=== PATIENT | female | born 1950 | race Caucasian/White ===

== ENCOUNTER 2019-10-02 19:37 | Inpatient (IN) | payer OTHER ==
[2019-10-02] MEDS ORDERED: PIPERACILLIN/TAZOB 4.5 GM 4.5 GM in DEXTROSE 5%-WATER 100 ML IVPB ONE (20:00)
[2019-10-02] MEDS ORDERED: VANCOMYCIN 1,000 MG in DEXTROSE 5%-WATER - 250 ML IVPB ONE (20:00)
--- NOTE | 2019-10-02 20:01 | PDOC ---
History of Present Illness - General Stated Complaint: VOMITING BLOOD Time Seen by Provider: 10/02/19 19:56 - History of Present Illness Initial Comments: The pt is a 69F from [facility] w/ a history of C-diff (being treated currently), acute spinal cord infarction, history of GIB, s/p trach, paraplegiam, COPD, RLE DVT (Eliquis), DM, sacral ulcers who presents for evaluation of hypotension s/p coffee ground emesis witnessed today at 1300. The pt was noted to be hypotensive to the 70s/40s. The pt is unable to provide a detailed history. Pt endorses bloody vomit today x1, is unsure if she had blood in her stool. Denies pain. Per EMS, the NH only noted one episode of emesis today. 10/02/19 20:18 Past History - Past Medical History Allergies/Adverse Reactions: Allergies Allergy/AdvReac Type Severity Reaction Status Date / Time No Known Allergies Allergy Verified 10/02/19 21:27 Review of Systems - Review of Systems Able to Perform ROS?: No (2/2 medical condition) *Physical Exam - Physical Exam Comments: GENERAL: Awake, alert HEAD: No signs of trauma, normocephalic, atraumatic EYES: PERRLA, EOMI, sclera pale, conjunctiva clear ENT: Hearing grossly normal, nares patent, oropharynx clear without exudates NECK: Tracheostomy in place with small amount of dried blood around device LUNGS: No distress, on vent, coarse breathing sounds inferiorly b/l HEART: Regular rate and rhythm, normal S1 and S2, no murmurs appreciated ABDOMEN: Soft, protuberant, no grimace to palpation, normoactive bowel sounds EXTREMITIES: Edematous, cool, paraplegia NEUROLOGICAL: Cranial nerves II through XII grossly intact SKIN: Cool, diaphoretic, pale 10/02/19 20:36 10/02/19 20:47 Procedures - Central Line Central Line Lumen: triple Central Line Position: femoral (R) Complications: none Post Central Line Insertion: sutured, good blood return ED Treatment Course - LABORATORY CBC & Chemistry Diagram: 10/03/19 01:30 10/03/19 00:48 - RADIOLOGY Radiology Studies Ordered: Category Date Time Status CHEST X-RAY PORTABLE* [RAD] Stat Radiology 10/02/19 20:00 Ordered Radiograph Interpretation: THIS IS A PRELIMINARY REPORT FROM [facility] DATE OF SERVICE: 2019-10-03 00:25:04 EXAM: CT CHEST WITHOUT CONTRAST AND CT ABDOMEN WITHOUT CONTRAST AND CT PELVIS WITHOUT CONTRAST IMPRESSION: Moderate distention of the stomach and small bowel consistent with ileus or high -grade bowel obstruction transition zone distal small bowel loops. Abnormal wall thickening and gas in the wall of the small bowel suspicious for ischemic or infectious enteritis from gas forming microorganisms with extensive pneumatosis in the wall of the small bowel and mesenteric veins. 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 Moderate to severe arteriosclerosis of the aorta and aortic branches and pelvic vasculature. Large right pleural effusion. Moderate right lower lobe lung consolidation most likely due to pneumonia or aspiration pneumonia with obstruction of the right lower lobe bronchus from aspirated debris. Mild patchy right upper lobe and left lower lobe infiltrates consistent with pneumonia. Moderate distention of the esophagus with gastroesophageal reflux to the upper thoracic esophagus. Mediastinal and hilar nonspecific lymphadenopathy. Calcified coronary artery arteriosclerosis. Mild nonspecific wall thickening of the colon most likely due to mild infectious inflammatory or ischemic colitis. Moderate amount of free fluid throughout the abdomen and pelvis most likely due to infection. Mild nonspecific bladder wall thickening may be due to infectious cystitis. Uterus appears unremarkable. 10/03/19 02:55 Medical Decision Making - Critical Care Time Total Critical Care Time (minutes): 45 Critical Care Statement: The care of this patient involved high complexity decision making to prevent further life threatening deterioration of the patient 's condition and/or to evaluate & treat vital organ system(s) failure or risk of failure. - Medical Decision Making The pt is a 69F from [facility] w/ a history of C-diff, GIB, s/p trach who presents for evaluation of hypotension s/p coffee ground emesis witnessed today at 1300. ED Course Pt placed on monitor Respiratory notified s/p crash R fem CVC (triple lumen) Labs sent IVF 2u pRBC (uncrossed) Protonix 40mg IV once ICU consulted 10/02/19 20:20 CXR w/ RLL infiltrate No leukocytosis Lactate 9.9, s/p 2L NS and 2u pRBC Cr 4.4, BUN 172, pt being resuscitated Transaminitis Trop I 0.1 Hgb 9.3, Hgb reported as 8s from PR Pt w/o emesis in ED, stool w/o melena Pt persistently hypotensive s/p 2L IVF and 2u pRBC, Norepi initiated at 5mcg/min Pt singed out to ICU 10/02/19 21:57 Pt noted to be febrile, will give Ofirmev 1g IV once Pt signed out to [facility] Admitting Hyperkalemia noted, pt given Ca ECG w/ sinus tachycardia, HR 108; narrow QRS; QTc 431; no axis deviation; no YAIR AG likely 2/2 lactic acidosis 10/02/19 23:31 Discharge - Discharge Information Problems reviewed: Yes Clinical Impression/Diagnosis: Sepsis Qualifiers: Sepsis type: sepsis due to unspecified organism Sepsis acute organ dysfunction status: unspecified Qualified Code(s): A41.9 - Sepsis, unspecified organism Hypotension Qualifiers: Hypotension type: unspecified hypotension type Qualified Code(s): I95.9 - Hypotension, unspecified Renal failure Qualifiers: Renal failure chronicity: unspecified chronicity Qualified Code(s): N19 - Unspecified kidney failure Pneumonia Qualifiers: Pneumonia type: due to unspecified organism Laterality: unspecified laterality Lung location: unspecified part of lung Qualified Code(s): J18.9 - Pneumonia, unspecified organism Condition: Critical - Admission Yes - Follow up/Referral - Patient Discharge Instructions - Post Discharge Activity
[2019-10-02] MEDS ORDERED: SODIUM CHLORIDE 0.9% 500 ML INFUS.BAG IV ONE (20:02)
[2019-10-02] MEDS ORDERED: PANTOPRAZOLE SODIUM 40 MG VIAL IVPUSH ONE (20:17)
--- NOTE | 2019-10-02 20:17 | PDOC ---
Attending Attestation - Resident Resident Name: Sid Handy - ED Attending Attestation I have performed the following: I have examined & evaluated the patient, The case was reviewed & discussed with the resident, I agree w/resident's findings & plan, Exceptions are as noted - HPI HPI: 10/02/19 20:16 Ms Danielson is a 69 yo F who presents the emergency department from [facility] due to coffee-ground emesis and hypotension Pt unable to give history She was noted to have coffee ground emesis at 1pm She was sent to the ER now due to relative hypotension 10/02/19 20:34 - Physicial Exam PE: 10/02/19 20:17 Patient's eyes open, is awake, no spontaneous verbalization Pupils are equal and round, reactive to light bilaterally Tracheostomy in place, no bleeding Breath sounds are coarse bilaterally Protuberant abdomen, does not appear tender to palpation Multiple tattoos on the abdomen Lower extremities are edematous bilaterally, cool to touch Two sacral decubiti noted, stage III, no bone exposed, surrounding erythema 10/02/19 22:36 - Critical Care Time Total Critical Care Time: 120 Critical Care Statement: The care of this patient involved high complexity decision making to prevent further life threatening deterioration of the patient 's condition and/or to evaluate & treat vital organ system(s) failure or risk of failure. - Medical Decision Making 10/02/19 20:18 69-year-old female presenting to the emergency department hypotensive Unable to obtain peripheral access Unable to place IJ Femoral line placed due to hypotension, no access Differential diagnoses include Upper GI bleed, anemia, sepsis, dehydration secondary to excessive diarrhea/ poor po intake We will do: Labs Chest x-ray EKG IV fluids Protonix Reassess Chest x-ray: Right sided pleural effusion, no consolidation ? Underlying pneumonia 10/02/19 22:29 Laboratory Tests 10/02/19 10/02/19 10/02/19 20:00 20:00 20:00 WBC 8.2 Hgb 9.3 L Hct 28.7 L Plt Count 799 H INR 1.76 H VBG pH POC VBG pCO2 POC VBG pO2 VBG HCO3 Sodium 124 L Potassium 5.7 H Chloride 85 L Carbon Dioxide 17 L Anion Gap 21 H BUN 172.3 H* Creatinine 4.4 H Random Glucose 397 H Lactic Acid AST 129 H ALT 553 H Troponin I 0.10 H Urine Blood Urine Nitrite Ur Leukocyte Esterase Urine WBC (Auto) 10/02/19 10/02/19 10/02/19 20:00 20:00 20:29 WBC Hgb Hct Plt Count INR VBG pH 7.13 L* POC VBG pCO2 48.1 POC VBG pO2 < 49 H VBG HCO3 15.4 L Sodium Potassium Chloride Carbon Dioxide Anion Gap BUN Creatinine Random Glucose Lactic Acid 9.9 H* AST ALT Troponin I Urine Blood 3+ H Urine Nitrite Positive H Ur Leukocyte Esterase 3+ H Urine WBC (Auto) 2914.6 Clinical impression: UA - UTI ---> UROSEPSIS (Got Zosyn, Vanc, Flagyl) RENAL FAILURE (unsure baseline creatitine, Labs this morning Cr: 2.9) BUN ELEVATED - UGIB vs. RENAL FAILURE (BUN>150 on labs this morning) HYPERKALEMIA - IVF, Calcium ELEVATED TROP - Critical illness POSSIBLE UGIB - Protonix ordered CDIFF (being treated) CT Chest/Abd/Pelvis Ordered (eval for SBO, Toxic Megacolon, free air, bowel ischemia/mesenteric ischemia) Pt remains hypotensive Started on Vasopressors Pt is critically ill
[2019-10-02 20:25] LABS: BASO % 0.1 % (0-2.0); EOS % 0.3 % (0-4.5); HEMATOCRIT 28.7 % (32.4-45.2); HEMOGLOBIN 9.3 GM/dL (10.7-15.3); LYMPH % 14.7 % (8-40); MCH 29.3 pg (25.7-33.7); MCHC 32.3 g/dl (32.0-36.0); MEAN CELL VOLUME 90.9 fl (80-96); MEAN PLT VOLUME 8.1 fl (7.5-11.1); MONO % 2.4 % (3.8-10.2); NEUT % 82.5 % (42.8-82.8); PLATELET COUNT 799 K/MM3 (134-434); RBC 3.15 M/mm3 (3.60-5.2); RDW 15.8 % (11.6-15.6); VENOUS PC02 48.1 mmHg (38-52); WHITE BLOOD COUNT 8.2 K/mm3 (4.0-10.0)
[2019-10-02 20:27] LABS: VENOUS PO2 < 49 mmHg (28-48)
[2019-10-02 20:30] LABS: VENOUS PH 7.13 (7.31-7.41)
[2019-10-02 20:37] LABS: INR 1.76 (0.83-1.09); PROTHROMBIN TIME (PATIENT) 20.9 SEC (9.7-13.0)
[2019-10-02 20:40] LABS: ACTIVATED PTT 35.9 SECONDS (25.2-36.5)
[2019-10-02] MEDS ORDERED: PIPERACILLIN/TAZOB 4.5 GM 4.5 GM/100 ML BAG IVPB ONE (20:51)
[2019-10-02] MEDS ORDERED: PANTOPRAZOLE SODIUM 40 MG/100 ML BAG IVPB ONE (20:51)
[2019-10-02] MEDS ORDERED: VANCOMYCIN 1 GRAM (PRE-DOCKED) 1,000 MG/250 ML BAG IVPB ONE (20:52)
[2019-10-02] MEDS ORDERED: SODIUM CHLORIDE 1,000 ML IV STA (21:04)
[2019-10-02] MEDS ORDERED: NOREPINEPHRINE BITARTRATE 8,000 MCG in DEXTROSE 5%-WATER - 492 ML IV SCH (21:15)
[2019-10-02] MEDS ORDERED: NOREPINEPHRINE BITARTRATE 4 MG/4 ML ML IV ONE (21:18)
[2019-10-02 21:20] LABS: ALBUMIN 1.7 g/dl (3.4-5.0); BILIRUBIN,TOTAL 0.5 mg/dL (0.2-1); CALCIUM 8.4 mg/dL (8.5-10.1); CREATININE 4.4 mg/dL (0.55-1.3); POTASSIUM 5.7 mmol/L (3.5-5.1)
[2019-10-02 21:22] LABS: BLOOD UREA NITROGEN 172.3 mg/dL (7-18)
[2019-10-02 22:16] LABS: URINE APPEARANCE TURBID; URINE BILIRUBIN NEGATIVE (NEGATIVE); URINE COLOR YELLOW; URINE GLUCOSE (UA) NEGATIVE (NEGATIVE); URINE KETONE NEGATIVE (NEGATIVE)
[2019-10-02 22:17] LABS: PH,URINE 7.5 (5.0-8.0); URINE NITRITE POSITIVE (NEGATIVE); URINE PROTEIN 2+ (NEGATIVE); URINE UROBILINOGEN 0.2 mg/dL (0.2-1.0)
[2019-10-02 22:18] LABS: HYALINE CASTS 2918.85 /lpf (0-8); URINE BACTERIA 5042.9 /hpf (NEGATIVE); URINE CRYSTALS NONE SEEN /hpf; URINE LEUK ESTERASE 3+ (NEGATIVE); URINE WBC 2914.6 /hpf (0-5); YEAST FEW (NEGATIVE)
[2019-10-02] MEDS ORDERED: CALCIUM GLUCONATE 10% - 1,000 MG/10 ML VIAL IVPB ONE (22:36)
[2019-10-02] MEDS ORDERED: ACETAMINOPHEN INJECTION 100 ML IVPB ONE (23:20)
[2019-10-02] MEDS ORDERED: ACETAMINOPHEN 1000 MG/100 ML VIAL (NON FORMULARY) IVPB ONE (23:30)
[2019-10-02] MEDS ORDERED: CALCIUM GLUCONATE 10% - 1,000 MG/10 ML VIAL ONE (23:48)
--- NOTE | 2019-10-02 23:52 | CONSULT ---
Consultation: REQUESTING PROVIDER: CONSULT REQUEST: We have been asked to medically evaluate this patient for ICU admission. HISTORY OF PRESENT ILLNESS: 69 y/o/f with PMHx of T2DM, HTN, HLD, COPD, and schizoaffective disorder who was recently discharged from [facility] to [facility] who was sent to the ED for two episodes of coffee ground emesis and hypotension today. Patient was admitted to [facility] for spinal cord infarction and flaccid quadriplegia in July. She was discharged on 09/30. In the ED patient was persistently hypotensive despite receiving 2L NS and 2 units PRBC. Found to have elevated renal function, elevated lactic acid, multiple lyte abnormalities. Discharge summary obtained from [facility] and placed in chart. At time of discharge from [facility] on 09/30 patient was known to have a BUN/Cr of 71/0.7. CXR with right sided pneumonia and UA positive for UTI. Patient admitted to ICU for severe sepsis 2/2 PNA vs UTI. REVIEW OF SYSTEMS: unable to obtain as patient has a tracheostomy PHYSICAL EXAMINATION Vital Signs - 24 hr 10/02/19 10/02/19 10/02/19 19:40 19:50 20:10 Temperature 100.9 F H Pulse Rate 113 H 118 H Respiratory 27 H 25 H Rate Blood Pressure 62/49 L O2 Sat by Pulse 99 100 Oximetry (%) 10/02/19 21:32 Temperature Pulse Rate 118 H Respiratory Rate Blood Pressure 89/57 L O2 Sat by Pulse Oximetry (%) GENERAL: alert, tracks movement with eyes HEAD: Normal with no signs of trauma. EYES: PERRL, EOMI EARS, NOSE, THROAT: Dry mucous membranes. NECK: Normal range of motion, supple without lymphadenopathy, JVD, or masses. LUNGS: patient with tracheostomy tube. Coarse breath sounds bilaterally, L worse than R. no accessory muscle use. HEART: Regular rate and rhythm, normal S1 and S2 without murmur, rub or gallop. ABDOMEN: distended, soft, nontender EXTREMITIES: 2+ pulses, warm, well-perfused. No calf tenderness. No peripheral edema. PSYCHIATRIC: Cooperative. Good eye contact. SKIN: multiple ulcers noted over sacrum and buttocks. 2x3 ulcer over right lower buttocks, 3x5 ulcer over lower left buttocks, larger ulcer over sacrum. No exposed bone. Erythema surrounding the groin Laboratory Results - last 24 hr 10/02/19 10/02/19 10/02/19 20:00 20:00 20:00 WBC 8.2 RBC 3.15 L Hgb 9.3 L Hct 28.7 L MCV 90.9 MCH 29.3 MCHC 32.3 RDW 15.8 H Plt Count 799 H MPV 8.1 Absolute Neuts (auto) 6.8 Neutrophils % 82.5 Lymphocytes % 14.7 Monocytes % 2.4 L Eosinophils % 0.3 Basophils % 0.1 Nucleated RBC % 0 PT with INR 20.90 H INR 1.76 H PTT (Actin FS) 35.9 VBG pH POC VBG pCO2 POC VBG pO2 VBG HCO3 VBG O2 Sat (Sandra) VBG Base Excess Sodium 124 L Potassium 5.7 H Chloride 85 L Carbon Dioxide 17 L Anion Gap 21 H BUN 172.3 H* Creatinine 4.4 H Est GFR (CKD-EPI)AfAm 11.26 Est GFR (CKD-EPI)NonAf 9.71 POC Glucometer Random Glucose 397 H Lactic Acid Calcium 8.4 L Total Bilirubin 0.5 AST 129 H ALT 553 H Alkaline Phosphatase 66 Troponin I 0.10 H Total Protein 6.0 L Albumin 1.7 L Urine Color Urine Appearance Urine pH Ur Specific [place] Urine Protein Urine Glucose (UA) Urine Ketones Urine Blood Urine Nitrite Urine Bilirubin Urine Urobilinogen Ur Leukocyte Esterase Urine WBC (Auto) Urine RBC (Auto) Urine Casts (Auto) U Pathogenic Cast Auto U Epithel Cells (Auto) Urine Crystals (Auto) Urine Bacteria (Auto) Urine Yeast (Auto) Stool Occult Blood Blood Type Antibody Screen Crossmatch 10/02/19 10/02/19 10/02/19 20:00 20:00 20:00 WBC RBC Hgb Hct MCV MCH MCHC RDW Plt Count MPV Absolute Neuts (auto) Neutrophils % Lymphocytes % Monocytes % Eosinophils % Basophils % Nucleated RBC % PT with INR INR PTT (Actin FS) VBG pH 7.13 L* POC VBG pCO2 48.1 POC VBG pO2 < 49 H VBG HCO3 15.4 L VBG O2 Sat (Sandra) 44.4 L VBG Base Excess -14.0 L Sodium Potassium Chloride Carbon Dioxide Anion Gap BUN Creatinine Est GFR (CKD-EPI)AfAm Est GFR (CKD-EPI)NonAf POC Glucometer Random Glucose Lactic Acid 9.9 H* Calcium Total Bilirubin AST ALT Alkaline Phosphatase Troponin I Total Protein Albumin Urine Color Urine Appearance Urine pH Ur Specific [place] Urine Protein Urine Glucose (UA) Urine Ketones Urine Blood Urine Nitrite Urine Bilirubin Urine Urobilinogen Ur Leukocyte Esterase Urine WBC (Auto) Urine RBC (Auto) Urine Casts (Auto) U Pathogenic Cast Auto U Epithel Cells (Auto) Urine Crystals (Auto) Urine Bacteria (Auto) Urine Yeast (Auto) Stool Occult Blood Blood Type A POSITIVE Antibody Screen Negative Crossmatch See Detail 10/02/19 10/02/19 10/02/19 20:18 20:29 22:40 WBC RBC Hgb Hct MCV MCH MCHC RDW Plt Count MPV Absolute Neuts (auto) Neutrophils % Lymphocytes % Monocytes % Eosinophils % Basophils % Nucleated RBC % PT with INR INR PTT (Actin FS) VBG pH POC VBG pCO2 POC VBG pO2 VBG HCO3 VBG O2 Sat (Sandra) VBG Base Excess Sodium Potassium Chloride Carbon Dioxide Anion Gap BUN Creatinine Est GFR (CKD-EPI)AfAm Est GFR (CKD-EPI)NonAf POC Glucometer 385 Random Glucose Lactic Acid Calcium Total Bilirubin AST ALT Alkaline Phosphatase Troponin I Total Protein Albumin Urine Color Yellow Urine Appearance Turbid Urine pH 7.5 Ur Specific [place] 1.013 Urine Protein 2+ H Urine Glucose (UA) Negative Urine Ketones Negative Urine Blood 3+ H Urine Nitrite Positive H Urine Bilirubin Negative Urine Urobilinogen 0.2 Ur Leukocyte Esterase 3+ H Urine WBC (Auto) 2914.6 Urine RBC (Auto) 18.0 Urine Casts (Auto) 2918.85 U Pathogenic Cast Auto None seen U Epithel Cells (Auto) 166.0 Urine Crystals (Auto) None seen Urine Bacteria (Auto) 5042.9 Urine Yeast (Auto) Few Stool Occult Blood Positive Blood Type Antibody Screen Crossmatch Active Medications Generic Name Dose Route Start Last Admin Trade Name Freq PRN Reason Stop Dose Admin Norepinephrine Bitartrate 8, 500 mls @ 18.75 mls/hr 10/02/19 21:15 10/02/19 21:32 000 mcg/ Dextrose IV 5 mcg/min TITR UMBERTO 18.75 mls/hr Administration Protocol 5 MCG/MIN ASSESSMENT/PLAN: 69 y/o/f with PMHx of T2DM, HTN, HLD, COPD, and schizoaffective disorder who was recently discharged from [facility] on 09/30 to [facility] who was sent to the ED for two episodes of coffee ground emesis and hypotension today. Admitted to ICU for KO and severe sepsis 2/2 PNA and UTI. #Neuro - Hold ASA - Hx of spinal infarct with flaccid quadriplegia, was admitted to [facility] in July - Hold Eliquis due to risk of GI bleed #Cardio - Echocardiogram to evaluate cardiac function - EKG - Trend Trops - BP support with Pressors: Levophed and Vasopressin #Respiratory - On Tracheostomy tube with vent - CXR showing right sided PNA vs pleural effusion - repeat ABG - CTAP: Moderate right lower lobe lung consolidation most likely due to PNA vs aspiration PNA. #GI - sent to ED with complaints of coffee ground emesis at [facility] - Protonix 40mg IV BID - Octreotide drip started - repeat CBC and transfuse as needed - BUN elevated inappropriately in relation to Cr, increases concern for GI bleed - CTAP showing: Moderate distention of the stomach and small bowel consistent with ileus or high-grade bowel obstruction transition zone distal small bowel loops. Gas in the wall of the small bowel suspicious for ischemic or infectious enteritis. 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 - GI consulted - Surgery consulted, spoke with Dr. Bacon, recommended to see if [facility] is willing to accept patient as patient was recently discharged from and had a complicated and extended stay at [facility]. #Renal - KO like 2/2 dehydration - last known BUN/Cr at discharge at [facility] was 71/0.7. BUN/Cr on admission here 172.3/4.4 - 3L fluid bolus NS given in ED - continue to bolus here as needed, add maintenance fluids - Hyperkalemia, treat with Insulin, D50, calcium gluconate. Will hold Lokelma, Kayexalate - Sodium Bicarb given - Urine studies ordered - Nephrology consulted #Heme - Hx of DVT in RUE - U/S of RUE to r/o DVT - 2 units PRBCs given in ED - monitor H&H, transfuse as needed #ID - Severe sepsis 2/2 PNA and UTI - IVF bolus for volume support - ID consulted - Started on Zosyn - Vanc, Zosyn x1 given in ED. Will hold Vanc due to renal function #Endo - hx of Diabetes - BGMs - ISS - consider insulin drip for better glycemic control #Prophylaxis - holding chemical anticoagulation due to risk of GI bleed - SCDs #FEN - NPO until evaluated by GI #Disposition - accepted for ICU monitoring - Patient accepted for transfer to [facility] MICU. Consent for transfer obtained from hebert Cassandra Felton, over the phone. Nurse confirmed consent for transfer. Visit type - Emergency Visit Emergency Visit: Yes ED Registration Date: 10/02/19 Care time: The patient presented to the Emergency Department on the above date and was hospitalized for further evaluation of their emergent condition. - New Patient This patient is new to me today: Yes Date on this admission: 10/03/19 - Critical Care Critical Care patient: Yes Total Critical Care Time (in minutes): 36 Critical Care Statement: The care of this patient involved high complexity decision making to prevent further life threatening deterioration of the patient 's condition and/or to evaluate & treat vital organ system(s) failure or risk of failure. ATTENDING PHYSICIAN STATEMENT I saw and evaluated the patient. I reviewed the resident's note and discussed the case with the resident. I agree with the resident's findings and plan as documented. SUBJECTIVE: OBJECTIVE: ASSESSMENT AND PLAN:
[2019-10-03] MEDS ORDERED: SODIUM CHLORIDE 1,000 ML IV STA ×2 (00:03→02:01)
[2019-10-03] MEDS ORDERED: SODIUM CHLORIDE 1,000 ML IV SCH (01:00)
[2019-10-03] MEDS ORDERED: OCTREOTIDE ACETATE 50 MCG/1 ML - 1 ML VIAL IVPUSH ONE (01:07)
[2019-10-03] MEDS ORDERED: INSULIN REGULAR HUMAN 100 UNITS/ML *VIAL SQ ONE (01:13)
[2019-10-03] MEDS ORDERED: OCTREOTIDE ACETATE 200 MCG, OCTREOTIDE ACETATE 1,000 MCG in DEXTROSE 5%-WATER - 496 ML IVPB SCH (01:15)
[2019-10-03] MEDS ORDERED: SODIUM BICARBONATE 8.4% 50 MEQ/50 ML DISP.SYRIN IVPUSH ONE (01:28)
[2019-10-03 01:47] LABS: HEMATOCRIT 36.6 % (32.4-45.2); HEMOGLOBIN 11.9 GM/dL (10.7-15.3); MCH 29.3 pg (25.7-33.7); MCHC 32.5 g/dl (32.0-36.0); MEAN CELL VOLUME 90.2 fl (80-96); MEAN PLT VOLUME 8.1 fl (7.5-11.1); PLATELET COUNT 608 K/MM3 (134-434); RBC 4.06 M/mm3 (3.60-5.2); RDW 15.7 % (11.6-15.6); WHITE BLOOD COUNT 11.4 K/mm3 (4.0-10.0)
[2019-10-03] MEDS ORDERED: PIPERACILLIN/TAZOB 2.25 GM 2.25 GM in DEXTROSE 5%-WATER - 50 ML IVPB SCH ×2 (02:00→18:00)
--- NOTE | 2019-10-03 02:00 | HP ---
Admitting History and Physical - Primary Care Physician PCP: Dr. Sheth - Admission Chief Complaint: S/p vomiting blood History of Present Illness: 69 year old female from [facility] with history of history of C-diff (being treated currently), acute spinal cord infarction, history of GIB, s/p trach, paraplegic COPD, RLE DVT (Eliquis), DM, sacral ulcers who presents to [facility] ER for evaluation of hypotension s/p coffee ground emesis. Patient hypotensive BP in the 70s/40s. Patient unable to provide a detailed history. Per NH record patient was admitted to [facility] for spinal cord infarction and flaccid quadriplegia in July. She was discharged on 09/30. History Source: Medical Record, Transfer Record Limitations to Obtaining History: Clinical Condition - Past Medical History Cardiovascular: Yes: Deep Vein Thrombosis Pulmonary: Yes: COPD, Other (s/p trach) Gastrointestinal: Yes: GI Bleed Infectious Disease: Yes: C-Diff Musculoskeletal: Yes: Paraplegia, Other (acute spinal cord infarction) Endocrine: Yes: Diabetes Mellitus Dermatology: Yes: Other (sacral ulcer) - Past Surgical History Additional Past Surgical History: unable to retrieve due to patient conditions - Smoking History Smoking history: Unknown if ever smoked - Social History Usual Living Arrangement: Yes: Care Home ADL: Support Services History of Recent Travel: No Home Medications - Allergies Allergies/Adverse Reactions: Allergies Allergy/AdvReac Type Severity Reaction Status Date / Time No Known Allergies Allergy Verified 10/02/19 21:27 Family Medical History Family History: Unable to Obtain Review of Systems Unable to obtain ROS, reason: due to clinical condition Physical Examination Vital Signs: Vital Signs Temperature 100.9 F H 10/02/19 19:40 Pulse Rate 111 H 10/03/19 01:38 Respiratory Rate 24 H 10/03/19 00:05 Blood Pressure 86/50 L 10/03/19 01:38 O2 Sat by Pulse Oximetry (%) 100 10/02/19 20:10 Constitutional: Yes: Mild Distress, Obese Eyes: Yes: Conjunctiva Clear, EOM Intact HENT: Yes: Atraumatic, Normocephalic Neck: Yes: Other (+ trach in place) Cardiovascular: Yes: Tachycardia, S1, S2 Respiratory: Yes: Mechanically Ventilated, Rales, SOB on Exertion Gastrointestinal: Yes: Normal Bowel Sounds, Soft, Abdomen, Obese Musculoskeletal: Yes: WNL Extremities: Yes: WNL Edema: Yes Edema: RUE: 2+, LLE: 2+ Peripheral Pulses WNL: Yes Wound/Incision: Yes: Other (multiple ulcers noted over sacrum and buttocks. 2x3 ulcer over right lower buttocks, 3x5 ulcer over lower left buttocks, larger ulcer over sacrum.) Neurological: Yes: Alert, Confusion Labs: CBC, BMP 10/02/19 20:00 10/02/19 20:00 Imaging - Results Chest X-ray: Report Reviewed (Right side pleural effusion) Problem List - Problems (1) Sepsis associated hypotension Code(s): A41.9 - SEPSIS, UNSPECIFIED ORGANISM; I95.9 - HYPOTENSION, UNSPECIFIED (2) Sepsis due to pneumonia Code(s): J18.9 - PNEUMONIA, UNSPECIFIED ORGANISM; A41.9 - SEPSIS, UNSPECIFIED ORGANISM (3) Sepsis due to urinary tract infection Code(s): A41.9 - SEPSIS, UNSPECIFIED ORGANISM; N39.0 - URINARY TRACT INFECTION, SITE NOT SPECIFIED (4) Acute renal failure Code(s): N17.9 - ACUTE KIDNEY FAILURE, UNSPECIFIED (5) Hyperkalemia Code(s): E87.5 - HYPERKALEMIA (6) Upper GI bleed Code(s): K92.2 - GASTROINTESTINAL HEMORRHAGE, UNSPECIFIED (7) C. difficile diarrhea Code(s): A04.72 - ENTEROCOLITIS D/T CLOSTRIDIUM DIFFICILE, NOT SPCF RECUR (8) Hyponatremia Code(s): E87.1 - HYPO-OSMOLALITY AND HYPONATREMIA (9) Elevated troponin I level Code(s): R79.89 - OTHER SPECIFIED ABNORMAL FINDINGS OF BLOOD CHEMISTRY (10) Elevated liver enzymes Code(s): R74.8 - ABNORMAL LEVELS OF OTHER SERUM ENZYMES (11) Acute respiratory acidosis Code(s): E87.2 - ACIDOSIS (12) Tracheostomy dependence Code(s): Z93.0 - TRACHEOSTOMY STATUS Assessment/Plan 69 year old female from [facility] with history of history of C-diff (being treated currently), acute spinal cord infarction, history of GIB, s/p trach, paraplegic COPD, RLE DVT (Eliquis), DM, sacral ulcers who presents to [facility] ER for evaluation of hypotension s/p coffee ground emesis. Patient hypotensive BP in the 70s/40s. Patient unable to provide a detailed history. Patient with severe sepsis and hypotension, admitted to ICU for close/ continuous monitoring. # Spesis secondary to UTI Vs PNA -s/p R fem CVC (triple lumen) placed in ED -s/p zosyn and vancomycin x1 , continue with IV abx -follow up CHERRY culture -follow up ID -pending CT abd/pelvis& chest # Hypotensive 2/2 to sepsis -s/p 2L IVF, placed on Norepi initiated at 5mcg/min, titrate as tolerated - monitor BP closely, MAP above 50 # Acute on chronic respiratory failure # Trach dependence # Acute respiratory acidosis # Right sided pleural effusion - continue with continue o2 via trach collar - suction as needed - nebs as needed - follow up repeat Abg - follow up compensation and benefits administrator # Acute on Chronic Renal failure (Baseline from 09/30 hosptialization at [facility]) BUN/Cr of 71/0.7. # Hyponatremia/ Hyperkalemia - S/P 2 L IVF in ED, remain on IVF - monitor renal function - lyte supplemented, follow up labs - monitor renal and lytes trend - follow up Nephrology # R/o UGI - In ED 2u pRBC (uncrossed),Protonix 40mg IV once - occult blood (+) - continue with PPI IV BID and Octreotide drip - NPO - IVF - follow up GI in AM # Elevated trop likely demand ischemia - trop I: 0.10, follow up # 2 - ECG w/ sinus tachycardia, no axis deviation; no YAIR # Elevated Transaminitis - AST: 129 -ALT:553 - follow up CT abdomen - monitor trend # c-DIFF ( being treated from CT) -In ED given Flagyl 500mg x1 - continue with flagyl 500mg q 8 hours - contact precaution - follow up ID FEN NPO IVF monitor lyte trend VTE SCD Visit type - Emergency Visit Emergency Visit: Yes ED Registration Date: 10/02/19 Care time: The patient presented to the Emergency Department on the above date and was hospitalized for further evaluation of their emergent condition. - New Patient This patient is new to me today: Yes Date on this admission: 10/03/19 - Critical Care Critical Care patient: Yes Total Critical Care Time (in minutes): 32 Critical Care Statement: The care of this patient involved high complexity decision making to prevent further life threatening deterioration of the patient 's condition and/or to evaluate & treat vital organ system(s) failure or risk of failure.
[2019-10-03] MEDS ORDERED: DEXTROSE 5%-WATER - 50 ML IVPB ONE (02:11)
[2019-10-03] MEDS ORDERED: PIPERACILLIN/TAZOBACTAM 2.25 GM VIAL IVPB ONE (02:11)
[2019-10-03] MEDS ORDERED: VASOPRESSIN 50 UNITS in SODIUM CHLORIDE 97.5 ML IVPB SCH (02:15)
[2019-10-03] MEDS ORDERED: SODIUM BICARBONATE 8.4% 50 MEQ/50 ML VIAL IVPUSH ONE (02:15)
[2019-10-03 02:21] VITALS: TEMP 98.9; BMI 28.0
[2019-10-03 02:26] LABS: ALBUMIN 1.4 g/dl (3.4-5.0); CREATININE 3.8 mg/dL (0.55-1.3); TOT PROT 4.9 g/dl (6.4-8.2)
[2019-10-03 02:37] LABS: ARTERIAL BLD GAS O2 SATURATION 91.7 % (95-98); ARTERIAL BLOOD GAS BASE EXCESS -15.2 meq/l (-2-2); ARTERIAL BLOOD GAS PCO2 30.8 mmHg (35-45)
[2019-10-03 02:43] LABS: ALLENS TEST POSITIVE
[2019-10-03] MEDS ORDERED: INSULIN SLIDING SCALE (NOVOLOG) 1 VIAL SQ SCH ×2 (02:45)
[2019-10-03] MEDS ORDERED: INSULIN REGULAR HUMAN 100 UNITS/ML *VIAL IVPUSH ONE (02:50)
[2019-10-03 05:42] LABS: CALCIUM 7.7 mg/dL (8.5-10.1); POTASSIUM 5.5 mmol/L (3.5-5.1)
[2019-10-03 05:44] LABS: BLOOD UREA NITROGEN 167.1 mg/dL (7-18)
[2019-10-03 06:34] VITALS: BP 100/58; PULSE 130
[2019-10-03] MEDS ORDERED: PANTOPRAZOLE SODIUM 40 MG VIAL IVPUSH SCH (10:00)
--- NOTE | 2019-10-04 20:12 | EKG ---
Test Reason : Blood Pressure : / mmHG Vent. Rate : 108 BPM Atrial Rate : 108 BPM P-R Int : 120 ms QRS Dur : 086 ms QT Int : 322 ms P-R-T Axes : 077 057 064 degrees QTc Int : 431 ms SINUS TACHYCARDIA OTHERWISE NORMAL ECG NO PREVIOUS ECGS AVAILABLE Confirmed by TRAN MERCEDES MD ([id number]) on 10/04/2019 8:12:27 PM Referred By: Confirmed By:TRAN MERCEDES MD
== END 2019-10-03 05:00 | disposition short-term general hospital (02) | DRG 871 ==
LOC: JER 19:37 → JERBED 20:22 → JICU 10-03 01:08
PROVIDERS: ADMIT Internal Medicine; ATTEND Internal Medicine
PROC: 30233N1 Transfusion of Nonautologous Red Blood Cells into Peripheral Vein, Percutaneous Approach (ICD-10-PCS; principal; 2019-10-02)
PROC: 5A1935Z Respiratory Ventilation, Less than 24 Consecutive Hours (ICD-10-PCS; 2019-10-02)
DX: A41.9 Sepsis, unspecified organism (principal); L89.153 Pressure ulcer of sacral region, stage 3; J96.20 Acute and chronic respiratory failure, unspecified whether with hypoxia or hypercapnia; R65.21 Severe sepsis with septic shock; J69.0 Pneumonitis due to inhalation of food and vomit; N39.0 Urinary tract infection, site not specified; E87.2 Acidosis; N17.9 Acute kidney failure, unspecified; E87.1 Hypo-osmolality and hyponatremia; I24.8 Other forms of acute ischemic heart disease; J90 Pleural effusion, not elsewhere classified; A04.72 Enterocolitis due to Clostridium difficile, not specified as recurrent; I95.9 Hypotension, unspecified; Z93.0 Tracheostomy status; E87.5 Hyperkalemia; R74.0 Nonspecific elevation of levels of transaminase and lactic acid dehydrogenase [LDH]; E78.5 Hyperlipidemia, unspecified; E86.0 Dehydration
CPT/HCPCS: 36415; 36430; 36511; 36600; 71045-TC-FY; 71250-TC; 74176-TC; 80048; 80053; 81003; 82010; 82272; 82803; 82962; 83605; 84484; 85025; 85027; 85610; 85730; 86850; 86900; 86901; 86922; 87040; 87086; 87186; 93005; 93010; 94002; 99285-25; J0131; J7030; P9038; P9058